=== PATIENT | female | born 1960 | race Caucasian/White ===

== ENCOUNTER → 2021-06-23 | Outpatient (CLI) | payer BC ==
--- NOTE | 2021-06-23 16:37 | RAD ---
MG BILAT SCREEN+MARY 06/23/2021 3:35 PM INDICATION: Asymptomatic screening mammogram. COMPARISON: Screening TECHNIQUE: 3D tomosynthesis was performed in CC and MLO projections. 2D views were obtained from the 3D data. CAD was utilized as needed. FINDINGS: Breast density: Category C: The breats are heterogeneously dense, which may obscure small masses. Right breast: There are no suspicious microcalcifications, masses or areas of architectural distortio n. Left breast: There is a 4 mm group of microcalcifications identified within the upper left breast at middle depth, approximately 5.8 cm from the nipple. Further evaluation with spot magnification CC and ML views as well as full field ML view is recommended. IMPRESSION: 1. Incomplete left mammogram. Additional imaging is recommended as detailed above. 2. Negative right mammogram. BI-RADS category: 0; Incomplete Recommendations: Recommend additional imaging for which the patient will need to be called back. Electronically signed by: Carlene Pro MD (06/23/2021 4:35 PM) [id number]
== END ==
LOC: MAMMO 15:27
PROVIDERS: ATTEND Family Medicine
DX: Z12.31 Encounter for screening mammogram for malignant neoplasm of breast (principal)
CPT/HCPCS: 77063; 77067

== ENCOUNTER → 2021-07-09 | Outpatient (CLI) | payer BC ==
--- NOTE | 2021-07-09 13:48 | RAD ---
EXAM: Left breast diagnostic mammogram. HISTORY: 60-year-old female presents for evaluation of microcalcifications within the left breast dem onstrated on a mammogram performed 06/23/2021. TECHNIQUE: Full-field digital and spot magnification views of the left breast are obtained. COMPARISON: 06/23/2021 BREAST PARENCHYMAL DENSITY: Level C - Heterogeneously dense. FINDINGS: There are 3-4 measurable calcifications the 12:00 position of the left breast at mid depth. These are heterogeneous and coarse. No associated mass or distortion is seen. There are few addition al scattered benign calcifications within the left breast. IMPRESSION: 1. 3 or 4 measurable microcalcifications within the 12:00 position of the left breast. Given fewer th an five microcalcifications, short term follow up with a diagnostic left breast mammogram including m agnification views in 6 months is recommended. If the calcifications increase in number and demonstra te suspicious morphology at the time of follow-up, they are amenable to stereotactic guided biopsy fo r definitive diagnosis. 2. BI-RADS Category 3: Probably benign finding(s). Short term follow up with a diagnostic left breast mammogram including magnification views in 6 months is recommended. If your mammogram demonstrates that you have dense breast tissue, which could hide abnormalities, and if you have other risk factors for breast cancer that have been identified, you might benefit from s upplemental screening tests that may be suggested by your ordering physician. Dense breast tissue, i n and of itself, is a relatively common condition. This information is not provided to cause undue c oncern, but rather to raise your awareness and to promote discussion with your physician regarding th e presence of other risk factors, in addition to dense breast tissue. A report of your mammography re sults will be sent to you and your physician. You should contact your physician if you have any ques tions or concerns regarding this report. Mammography is a sensitive method for finding small breast cancers, but it does not detect them all a nd is not a substitute for careful clinical examination. A negative mammogram does not negate a clin ically suspicious finding and should not result in delay in biopsying a clinically suspicious abnorma lity. PQRS compliance statement - Patient information was entered into a reminder system with a target due date for the next mammogram. "Our facility is accredited by the [employer] M[employer]." Electronically signed by: Nanci Antoine MD (07/09/2021 1:46 PM) [id number]
== END ==
LOC: MAMMO 13:00
PROVIDERS: ATTEND Family Medicine
DX: R92.1 Mammographic calcification found on diagnostic imaging of breast (principal); R92.2 Inconclusive mammogram
CPT/HCPCS: 77065

== ENCOUNTER → 2022-01-05 | Outpatient (CLI) | payer BC ==
--- NOTE | 2022-01-05 11:13 | RAD ---
EXAMINATION: MG DIGITAL UNILAT DIAGNOSTIC MAMMO WITH MARY CLINICAL HISTORY: Six-month follow-up left breast calcifications TECHNIQUE: Digital craniocaudal, mediolateral oblique, and true lateral views of the left breast obta ined with magnification. COMPARISON: 07/09/2021, 06/23/2021 BREAST COMPOSITION: The breasts are heterogeneously dense, which may obscure small masses. FINDINGS: Essentially unchanged grouped coarse heterogeneous calcifications left breast middle third at 12:00 p osition. No evidence of suspicious mass or areas of architectural distortion. IMPRESSION: Probably benign calcifications 12:00 position left breast. Recommend bilateral mammogram in 6 months to serve as annual screening on the right and diagnostic follow-up on the left. BI-RADS ASSESSMENT: Category 3: Probably Benign RECOMMENDATION: Bilateral diagnostic mammogram in 6 months. PQRS compliance statement - Patient information was entered into a reminder system with a target due date for the next mammogram. "Our facility is accredited by the [employer]amm[employer]." Electronically signed by: Harvinder Shipley DO (01/05/2022 11:10 AM) [email or web address]
== END ==
LOC: MAMMO 09:57
PROVIDERS: ATTEND Family Medicine
DX: R92.1 Mammographic calcification found on diagnostic imaging of breast (principal)
CPT/HCPCS: 77065; G0279; 77061